=== PATIENT | female | born 1985 | race American Indian/Alaskan Native ===

== ENCOUNTER 2016-09-02 11:11 | Day surgery (SDC) | payer MEDICARE, MEDICAID ==
[2016-09-01 14:35] LABS: Hematocrit 21.6 % (30.3-42.9); Hemoglobin 7.6 gm/dl (10.1-14.3)
[2016-09-02] MEDS ORDERED: NACL 0.9% 250ML 250 ML IV ONE (11:22)
[2016-09-02] MEDS ORDERED: TYLENOL PO ONE (11:23)
[2016-09-02] MEDS ORDERED: BENADRYL IV ONE (11:23)
[2016-09-02] MEDS ORDERED: NORCO 5/325 PO ONE (16:00)
[2016-09-02 18:04] VITALS: BP 107/57
== END 2016-09-02 18:10 | disposition home or self-care (01) ==
LOC: OPU 11:11
PROVIDERS: ATTEND Internal Medicine Hematology & Oncology
DX: O99.019 Anemia complicating pregnancy, unspecified trimester (principal)
CPT/HCPCS: 36415; 36430; 85014; 85018; 85660; 86850; 86870; 86900; 86901; 86920; 96374; 96375; J1200; J2920; J7050; P9016

== ENCOUNTER 2016-10-18 22:11 | Emergency (ER) | payer MEDICARE | END 2016-10-18 23:35 | disposition left against medical advice (07) | LOC: ED 22:11 | DX: D57.00 Hb-SS disease with crisis, unspecified (principal); Z53.21 Procedure and treatment not carried out due to patient leaving prior to being seen by health care provider ==

== ENCOUNTER 2017-03-26 22:54 | Emergency (ER) | payer MEDICARE ==
[2017-03-26 23:34] VITALS: BP 153/84
[2017-03-27 00:09] LABS: Hematocrit 20.1 % (30.3-42.9); Hemoglobin 6.9 gm/dl (10.1-14.3); Mean Corpuscular HGB Conc 34 % (30-34); Mean Corpuscular Hemoglobin 31 pg (28-32); Mean Corpuscular Volume 92 fl (79-97); Platelet Count 479 K/mm3 (140-440); Red Blood Count 2.19 M/mm3 (3.65-5.03); White Blood Count 14.2 K/mm3 (4.5-11.0)
[2017-03-27 00:12] LABS: Red Cell Distribution Width 25.3 % (13.2-15.2)
[2017-03-27 00:43] LABS: BUN/Creatinine Ratio 14; Blood Urea Nitrogen 7 mg/dL (7-17); Carbon Dioxide 20 mmol/L (22-30); Chloride 106.9 mmol/L (98-107); Glucose 92 mg/dL (65-100); Potassium 3.7 mmol/L (3.6-5.0); Sodium 144 mmol/L (137-145)
[2017-03-27 00:49] LABS: Anion Gap 21 mmol/L
[2017-03-27 02:19] LABS: Basophils % (Manual) 0 % (0.0-1.8); Blastocytes % (Manual) 0 %
[2017-03-27 02:20] LABS: Anisocytosis 2+; Schistocytes Few
[2017-03-27 02:21] LABS: Elliptocytes 2+; Sickle Cells Few; Target Cells 1+
[2017-03-27 02:24] LABS: Polychromasia Few
[2017-03-27 02:25] LABS: Diff Status Complete; Platelet Estimate Consistent w Auto
== END 2017-03-27 01:11 | disposition left against medical advice (07) ==
LOC: ED 22:54
DX: Z53.21 Procedure and treatment not carried out due to patient leaving prior to being seen by health care provider (principal)
CPT/HCPCS: 36415; 80048; 85007; 85025; G0480; 80320

== ENCOUNTER 2017-05-21 00:06 | Emergency (ER) | payer MEDICARE ==
[2017-05-21] MEDS ORDERED: MORPHINE IV ONE ×3 (00:47→01:53)
[2017-05-21] MEDS ORDERED: ZOFRAN IV ONE (00:47)
--- NOTE | 2017-05-21 00:52 | Emergency Department Report ---
ED General Adult HPI - General Chief complaint: Sickle Cell Crisis Stated complaint: SICKLE CELL PAIN Time Seen by Provider: 05/21/17 00:42 Source: patient Mode of arrival: Stretcher Limitations: No Limitations - History of Present Illness Initial comments: Chief complaint sickle cell crisis History of present illness patient is a 30-year-old female history of sickle cell states that she was seen earlier in the day at [facility] is now here after getting morphine and blood transfusion over there stating that she still having bone pain crisis denies shortness of breath denies chest pain denies fever denies cough denies headache denies stiff neck -: Gradual, hour(s) Location: upper extremity, lower extremity Radiation: non-radiation Quality: aching Consistency: intermittent Improves with: medication Associated Symptoms: denies: headaches, nausea/vomiting, rash, shortness of breath, syncope, weakness - Related Data Home Medications Medication Instructions Recorded Confirmed Last Taken Folic Acid [Folic Acid] 1 mg PO QDAY 09/02/16 09/02/16 09/01/16 HYDROcodone/ACETAMINOPHEN 1 tab PO PRN PRN 09/02/16 09/02/16 09/02/16 11:00 [Hydrocodon-Acetaminophen 5-325] Pnv No.95/Ferrous Fum/Folic AC 1 each PO QDAY 09/02/16 09/02/16 09/01/16 [ Caplet] Previous Rx's Medication Instructions Recorded Last Taken Type HYDROcodone/APAP 5-325 [[place] 1 each PO Q6HR PRN #10 tablet 05/21/17 Unknown Rx 5/325] Allergies Allergy/AdvReac Type Severity Reaction Status Date / Time Latex, Natural Rubber Allergy Rash Verified 09/02/16 15:22 ED Review of Systems ROS: Stated complaint: SICKLE CELL PAIN Other details as noted in HPI Comment: All other systems reviewed and negative Constitutional: denies: fever Respiratory: denies: shortness of breath, SOB with exertion, SOB at rest Cardiovascular: denies: chest pain Gastrointestinal: denies: abdominal pain, nausea Musculoskeletal: arthralgia ED Past Medical Hx - Past Medical History Hx Hypertension: No Hx Heart Attack/AMI: No Hx Congestive Heart Failure: No Hx Sickle Cell Disease: Yes - Surgical History Hx Cholecystectomy: Yes Additional Surgical History: X 2 - Social History Smoking Status: Never Smoker Substance Use Type: None - Medications Home Medications: Home Medications Medication Instructions Recorded Confirmed Last Taken Type Folic Acid [Folic Acid] 1 mg PO QDAY 09/02/16 09/02/16 09/01/16 History HYDROcodone/ACETAMINOPHEN 1 tab PO PRN PRN 09/02/16 09/02/16 09/02/16 11:00 History [Hydrocodon-Acetaminophen 5-325] Pnv No.95/Ferrous Fum/Folic AC 1 each PO QDAY 09/02/16 09/02/16 09/01/16 History [ Caplet] HYDROcodone/APAP 5-325 [[place] 1 each PO Q6HR PRN #10 tablet 05/21/17 Unknown Rx 5/325] ED Physical Exam - General Limitations: No Limitations General appearance: alert, in no apparent distress - Head Head exam: Present: atraumatic, normocephalic - Eye Eye exam: Present: normal appearance, PERRL, EOMI - ENT ENT exam: Present: normal exam - Neck Neck exam: Present: normal inspection. Absent: meningismus - Respiratory Respiratory exam: Present: normal lung sounds bilaterally. Absent: respiratory distress, wheezes, rales, rhonchi, stridor, chest wall tenderness, decreased breath sounds - Cardiovascular Cardiovascular Exam: Present: regular rate, normal rhythm, normal heart sounds - GI/Abdominal GI/Abdominal exam: Present: soft. Absent: tenderness, guarding, rebound - Neurological Exam Neurological exam: Present: alert, oriented X3, CN II-XII intact, normal gait. Absent: motor sensory deficit - Skin Skin exam: Absent: diaphoretic, erythema, urticaria, vesicles, petechiae ED Course Vital Signs 05/21/17 05/21/17 05/21/17 00:16 00:45 01:20 Temperature 99 F Pulse Rate 75 Respiratory 20 14 16 Rate Blood Pressure 132/81 Blood Pressure [Left] O2 Sat by Pulse 100 94 Oximetry 05/21/17 01:36 Temperature 99.5 F Pulse Rate 74 Respiratory 14 Rate Blood Pressure Blood Pressure 136/69 [Left] O2 Sat by Pulse 94 Oximetry - Reevaluation(s) Reevaluation #1: 05/21/17 01:57 Patient was given IV fluids she was also given oxygen and pain control she requested some Benadryl for itch as well as some antinausea patient is improved in the ED with morphine Benadryl and zofran was some Benadryl ED Medical Decision Making - Lab Data Result diagrams: 05/21/17 00:43 - Medical Decision Making Patient did have records that came from [facility] that did show she was transfused for hemoglobin of 6.5. 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 ED Disposition Clinical Impression: Sickle cell crisis Disposition: DC- TO HOME OR SELFCARE Is pt being admited?: No Does the pt Need Aspirin: No Condition: Stable Instructions: Sickle Cell Crisis (ED) Additional Instructions: Return if new alarming symptoms Prescriptions: HYDROcodone/APAP 5-325 [[place] 5/325] 1 each PO Q6HR PRN #10 tablet PRN Reason: Pain Time of Disposition: 02:00
[2017-05-21] MEDS ORDERED: D5NS 0.2% 1,000 ML IV SCH (01:00)
[2017-05-21 01:13] LABS: Mean Corpuscular HGB Conc 37 % (30-34); Mean Corpuscular Hemoglobin 35 pg (28-32); Mean Corpuscular Volume 96 fl (79-97); Platelet Count 348 K/mm3 (140-440); Reticulocyte % 17.63 % (0.78-2.58); White Blood Count 17.2 K/mm3 (4.5-11.0)
[2017-05-21] MEDS ORDERED: BENADRYL IV ONE ×3 (01:16→01:53)
[2017-05-21] MEDS ORDERED: BENADRYL ONE (01:19)
[2017-05-21 01:24] LABS: Hematocrit 19.1 % (30.3-42.9); Red Cell Distribution Width 25.4 % (13.2-15.2)
[2017-05-21 01:37] VITALS: BP 136/69
[2017-05-21] MEDS ORDERED: D5/0.45NS 1,000 ML IV SCH (02:00)
[2017-05-21 03:22] LABS: Basophils % (Manual) 0 % (0.0-1.8); Blastocytes % (Manual) 0 %
[2017-05-21 03:25] LABS: Anisocytosis 2+; Diff Status Complete; Large Platelets 1+; Platelet Estimate Consistent w Auto; Polychromasia 1+; Sickle Cells 2+; Target Cells 1+
== END 2017-05-21 02:27 | disposition home or self-care (01) ==
LOC: ED 00:06
DX: D57.00 Hb-SS disease with crisis, unspecified (principal)
CPT/HCPCS: 36415; 84703; 85007; 85025; 85045; 96361; 96374; 96375; 96376; 99284; J1200; J2270; J2405